=== PATIENT | female | born 1990 | race Two or more races ===

== ENCOUNTER 2021-04-02 19:13 | Emergency (ER) | payer OTHER ==
[~2021-04-02] VITALS: Ht 162.6 cm; Wt 87.1 kg
[2021-04-02] MEDS ORDERED: ZYRTEC (20:03)
== END 2021-04-02 21:09 | disposition home or self-care (01) ==
LOC: ER 19:13
DX: M94.0 Chondrocostal junction syndrome [Tietze] (principal)